=== PATIENT | male | born 1980 | race Caucasian/White ===

== ENCOUNTER 2016-11-29 11:57 | Emergency (ER) | payer OTHER ==
[~2016-11-29 11:57] MED LIST: HYDROCODONE/APAP 5/325 TAB PO SCH
[2016-11-29 12:06] VITALS: RESP 16; O2SAT 96
--- NOTE | 2016-11-29 12:41 | EDPHY ---
H & P Time Seen by Provider: 11/29/16 12:27 HPI/ROS: CHIEF COMPLAINT: Abscess left buttock HISTORY OF PRESENT ILLNESS: 35-year-old male presents to the emergency department by private vehicle with painful abscess to his left buttock. Patient denies any known trauma or injury. He states over last 3 or 4 days he has had pain in the left buttock. 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 He had surgical intervention for 5 years ago. No fevers or chills. No abdominal pain or back pain. No chest pain or difficulty breathing. No treatment at home. He took Percocet prior to arrival. He has not done any warm soaks or any other treatment at home. REVIEW OF SYSTEMS: Constitutional: No fever, no chills. Eyes: No double or blurry vision. ENT: No sore throat. Respiratory: No cough, no shortness of breath. Cardiac: No chest pain. Gastrointestinal: No abdominal pain, vomiting or diarrhea. Genitourinary: No dysuria. Musculoskeletal: No neck or back pain. Skin: No rashes. Neurological: No headache. Past Medical/Surgical History: Perirectal abscess, fistula Social History: and lives in [place] Smoking Status: Former smoker Physical Exam: General Appearance: Alert, no distress. 36.6, 114/90 Eyes: Pupils equal and round. Extraocular motions are all intact. ENT: Mouth: Mucous membranes moist. Respiratory: No wheezing, rhonchi, or rales, lungs are clear to auscultation. Cardiovascular: Regular rate and rhythm. Gastrointestinal: Abdomen is soft and nontender, no masses, no rebound or guarding, bowel sounds normal. Neurological: Alert and oriented x 3, cranial nerves II through XII grossly intact Rectal exam: Patient has redness and pain with palpation with induration noted to the left buttock that extends into the rectum. No obvious palpable perirectal abscess. Extremely tender to palpate. Unable to perform rectal exam secondary to pain. No other surrounding warmth or cellulitis. Skin: Warm and dry, no rashes. Musculoskeletal: Nontender to palpate along the cervical, thoracic or lumbar spine. Neck is supple. Extremities: Full range of motion and no peripheral edema. Psychiatric: Patient is oriented X 3, there is no agitation. Constitutional: Initial Vital Signs Temperature (C) 36.6 C 11/29/16 12:01 Heart Rate 97 11/29/16 12:01 Respiratory Rate 16 11/29/16 12:01 Blood Pressure 114/90 H 11/29/16 12:01 O2 Sat (%) 96 11/29/16 12:01 O2 Delivery Mode Room Air Allergies/Adverse Reactions: No Known Allergies Allergy (Verified 11/29/16 12:05) Home Medications: Medication Instructions Recorded NK [No Known Home Meds] 08/22/13 Medical Decision Making ED Course/Re-evaluation: 35-year-old male presents to the emergency department with perirectal abscess in history of possible fistula. On examination the patient is very tender over the left buttock extending into the rectum although I do not feel appreciable abscess. I spoke with Dr. Madhuri Fournier who was the on-call surgeon, who came to evaluate the patient to determine if the patient needed imaging such as CT scan. The patient will be taken to the operating room for incision and drainage. Patient however had just eaten prior to arrival and therefore will come back to the hospital at 7:30 p.m. and be NPO with scheduled surgery with Dr. Madhuri Fournier at 8:00 p.m.. Differential Diagnosis: Including but not limited to perirectal abscess, cellulitis, fistula Departure - Departure Disposition: Home, Routine, Self-Care Clinical Impression: Perirectal abscess Condition: Good Instructions: Rectal Abscess (ED) Additional Instructions: Warm soaks 15-20 min three times daily for the next 2-3 days. Ibuprofen 600mg every 8 hours for pain as directed. Follow up with surgeon to recheck. Return if you develop a fever, increasing pain, or if you feel worse in any way. Referrals: Raj Wetzel MD [Primary Care Provider] - As per Instructions Madhuri Fournier MD [Medical Doctor] - 2-3 days without fail
[2016-11-29] MEDS ORDERED: ERTAPENEM 1 GM in NS 100 ML IV ONE (18:03)
[2016-11-29 18:20] VITALS: BP 122/82; PULSE 94; TEMP 98.6
--- NOTE | 2016-11-29 18:50 | GHP ---
[f rep st] HISTORY AND PHYSICAL DATE OF ADMISSION: 11/29/2016 CHIEF COMPLAINT: Abscess, left buttock. HISTORY OF PRESENT ILLNESS: The patient is a 35-year-old man who presents to the ED with an abscess to his left buttock. He has a history of an abscess that turned into a fistula and had intervention for this approximately 5 years ago. Since then, he has had no problems. Over the past couple of days, he has noticed pain and fullness. It has become worse. It reminded him of his previous abscess, and so he presented to the ED. PAST SURGERY HISTORY: None. PAST SURGICAL HISTORY: Abscess drainage, fistulotomy, and right hip arthroscopy. SOCIAL HISTORY: Denies tobacco use. He previously smoked. He is , and he lives in [place]. FAMILY HISTORY: Noncontributory. REVIEW OF SYSTEMS: A 10-point review of systems is negative except for buttock pain. PHYSICAL EXAMINATION: VITAL SIGNS: Afebrile. Regular pulse. Blood pressure within normal limits. GENERAL: Pleasant, well-nourished, well-groomed man. HEENT: Normocephalic. No gross hearing deficits. Mucous membranes moist. Pupils equal and round. No scleral icterus. LUNGS: Clear to auscultation bilaterally. No increased work of breathing. CARDIAC: Regular rate. RECTAL: He has a fullness that is more on the left side and anterior to the perineum. This is more painful when I do the rectal exam. IMPRESSION AND PLAN: The patient is a 35-year-old man with a perirectal abscess. We discussed draining this in the ER versus in the operating room. He prefers to go the operating room. I will perform an exam under anesthesia and drainage of the perirectal abscess. We discussed the risks and benefits including, but not limited to, stroke, heart attack, , blood clot, infection, bleeding, and recurrence. We also discussed the possibility of a fistula. He had his questions answered to his satisfaction. He will receive Invanz on-call to the OR. /[id number]/MODL MTDD
[2016-11-29] MEDS ORDERED: MIDAZOLAM 2 MG/2 ML VIAL ONE (19:11)
[2016-11-29] MEDS ORDERED: PROPOFOL/EMULSION 500 MG/50 ML BOTTLE IV ONE (19:18)
[2016-11-29] MEDS ORDERED: fentaNYL 250 MCG/5 ML INJ ONE (19:18)
[2016-11-29] MEDS ORDERED: DEXAMETHASONE 4 MG/ML VIAL ONE (19:48)
[2016-11-29] MEDS ORDERED: ONDANSETRON 4 MG/2 ML VIAL ONE (19:48)
[2016-11-29] MEDS ORDERED: LIDOCAINE 2% 5 ML SDV ONE (19:48)
[2016-11-29] MEDS ORDERED: HYDROCODONE/APAP 5/325 TAB ONE (20:54)
[2016-11-29] MEDS ORDERED: HYDROCODONE/APAP 5/325 TAB PO PRN (21:00)
--- NOTE | 2016-11-30 03:21 | GOP ---
[f rep st] OPERATIVE REPORT DATE OF OPERATION: 11/29/2016 SURGEON: Madhuri Fournier MD ANESTHESIA: General. ANESTHESIOLOGIST: Mathew Farnsworth MD PREOPERATIVE DIAGNOSIS: Perirectal abscess. POSTOPERATIVE DIAGNOSIS: Perirectal abscess with fistula. PROCEDURE PERFORMED: Exam under anesthesia, incision and drainage of perirectal abscess, and fistulotomy. FINDINGS: purulent material and obvious fistula SPECIMENS: Fluid for microbiology. ESTIMATED BLOOD LOSS: 10 cc. INDICATIONS: The patient is a 35-year-old man who developed a painful mass on his rectum. DESCRIPTION OF PROCEDURE: The patient was brought into the operating room, placed supine on the table and general anesthesia was administered. His bottom was prepped with Betadine and draped in the usual sterile fashion. He was placed in lithotomy position. I infiltrated all sites with 0.5% Marcaine prior to making the incisions. I aspirated over the fluctuant area and obtained purulent material for microbiology. I then made an incision over this area and the abscess tracked approximately 2.5 cm. I performed exam under anesthesia and I saw an obvious fistulous communication. I placed a small hemostat through this superficial tract and opened the tract. Hemostasis was achieved. The wound was irrigated. He was taken out of the lithotomy position. ABD and mesh pants were applied. He was awakened in the operating room, extubated, transferred to the PACU in stable condition. /[id number]/MODL MTDD
== END 2016-11-29 18:32 | disposition home or self-care (01) ==
DX: K61.1 Rectal abscess (principal); Z87.891 Personal history of nicotine dependence
CPT/HCPCS: 96365; J1100; J1335; J2250; J2405; J2704; J3010